=== PATIENT | female | born 2005 | race Caucasian/White ===

== ENCOUNTER 2024-09-20 20:50 | Outpatient (CLI) | payer SELFPAY | END 2024-09-20 20:51 | disposition home or self-care (01) | LOC: AMB 09-25 10:00 | PROVIDERS: Visit Provider Family Medicine | DX: S19.9XXA Unspecified injury of neck, initial encounter (principal); V40.3XXA Unspecified car occupant injured in collision with pedestrian or animal in nontraffic accident, initial encounter; Y92.410 Unspecified street and highway as the place of occurrence of the external cause | CPT/HCPCS: A0998 ==